=== PATIENT | female | born 1990 | race Caucasian/White ===

== ENCOUNTER 2023-02-07 13:31 | Inpatient (IN) | payer MEDICAID, SELFPAY ==
[2023-02-07 13:33] VITALS: BP 148/92; PULSE 111; RESP 16; TEMP 36.6; O2SAT 100; BMI 26.2
--- NOTE | 2023-02-07 15:59 | EDS_ITS ---
HPI History of Present Illness Chief Complaint: Substance Abuse Informant: patient Narrative Narrative: She isPatient presents requesting help with alcohol detox. She lives in the [place] area her counselor spoke with someone for follow-up but they would not have a bed available until Friday. They recommended she come in for inpatient detox. Patient states has been drinking for the last 7 years. She will drink half gallon of whiskey every 2 or 3 days. She is try to stop on her own before but does develop withdrawal symptoms including headache, shakiness, body aches. Her last drink was last evening. She states she started to feel anxious currently. She has never had an alcohol withdrawal seizure. [facility] Medical History Hypertension Ulcer Home Medications lisinopril 20 mg tablet 20 mg PO DAILY 02/07/23 [History Last Taken Unknown] pantoprazole 40 mg tablet,delayed release 40 mg PO DAILY 02/07/23 [History Last Taken Unknown] Allergy/AdvReac Type Severity Reaction Status Date / Time amoxicillin AdvReac Upset Verified 02/07/23 13:34 Stomach Social History Smoking Status: Current every day smoker tobacco type: cigarettes ROS ROS ED Constitutional Constitutional ED: Denies chills or fever(s) Eyes Eyes: Denies change in vision or discharge from eye(s) ENT ENT ED: Denies discharge from eye(s), rhinorrhea or sore throat Cardiovascular Cardiovascular: Denies chest pain or palpitations Respiratory/Chest Respiratory/Chest: Denies cough or dyspnea Gastrointestinal Gastrointestinal: Denies abdominal pain, nausea or vomiting Genitourinary Genitourinary ED: Denies dysuria Musculoskeletal Musculoskeletal: Denies back pain or extremity pain Integumentary Denies Abrasions or rash Neurologic Neurologic: Denies headache(s) or weakness Psychiatric Psychiatric: Reports anxiety; Denies depression Allergic/Immunologic Allergic/Immunologic ED: Denies lip swelling or urticaria EXAM Physical Exam Const Vital Signs: 02/07/23 13:33 Temperature 98 F Temperature Source Temporal Pulse Rate 111 H Respiratory Rate 16 Blood Pressure 148/92 H Blood Pressure Mean 110 Pulse Ox 100 Oxygen Delivery Method Room Air Positive well nourished and well developed General Appearance ED: well developed HEENT Reports normocephalic and head/scalp atraumatic Eyes PERRL and EOMs intact bilaterally Neck supple Chest Wall inspection of chest normal and palpation of chest normal Resp normal respiratory effort and clear to auscultation bilaterally Cardio regular rhythm Rate: tachycardic GI normal to inspection, nondistended, normoactive bowel sounds Palpation: soft Back/Spine no CVA tenderness Extremity normal to inspection Neuro oriented x3 and no sensory deficits noted Sensorium / Orientation: alert Motor Exam: strength 5/5 throughout Psych Mood & Affect: anxious and tearful Skin no rashes or lesions noted MDM MDM MDM Narrative Medical decision making narrative: Lab work for ED addiction medicine is obtained. Rules of the floor are reviewed with her. She agrees. She is given a small dose of Ativan IV to help with anxiety. Lab Data Attestation: I reviewed the patient's lab results. Labs: Laboratory Results - last 24 hr 02/07/23 02/07/23 02/07/23 16:09 16:29 16:29 WBC 13.4 H RBC 5.04 Hgb 15.6 H Hct 47.1 H MCV 93.5 MCH 31.0 MCHC 33.1 RDW Std Deviation 44.5 H RDW Coeff of Eduardo 13.0 Plt Count 237 MPV 10.2 Immature Gran % (Auto) 0.400 Neut % (Auto) 72.6 H Lymph % (Auto) 20.5 [place] % (Auto) 5.8 Eos % (Auto) 0.4 Baso % (Auto) 0.3 Absolute Neuts (auto) 9.7 H Absolute Lymphs (auto) 2.74 Nucleated RBC % 0 Sodium 139 Potassium 3.9 Chloride 106 Carbon Dioxide 24.0 Anion Gap 9 BUN 12 Creatinine 0.75 Estim Creat Clear Calc 92.99 Est GFR (MDRD) Af Amer 115 Est GFR (MDRD) Non-Af 95 BUN/Creatinine Ratio 16.0 Glucose 90 Calcium 9.3 Total Bilirubin 0.70 AST 28 ALT 56 Alkaline Phosphatase 57 Total Protein 8.4 H Albumin 4.4 Globulin 4.0 Albumin/Globulin Ratio 1.1 Serum , Qual Ur Drug Screen Comment 02/07/23 16:29 WBC RBC Hgb Hct MCV MCH MCHC RDW Std Deviation RDW Coeff of Eduardo Plt Count MPV Immature Gran % (Auto) Neut % (Auto) Lymph % (Auto) [place] % (Auto) Eos % (Auto) Baso % (Auto) Absolute Neuts (auto) Absolute Lymphs (auto) Nucleated RBC % Sodium Potassium Chloride Carbon Dioxide Anion Gap BUN Creatinine Estim Creat Clear Calc Est GFR (MDRD) Af Amer Est GFR (MDRD) Non-Af BUN/Creatinine Ratio Glucose Calcium Total Bilirubin AST ALT Alkaline Phosphatase Total Protein Albumin Globulin Albumin/Globulin Ratio Serum , Qual NEGATIVE Ur Drug Screen Comment Treatment and Re-Evaluation Narrative: White blood cell count is elevated at 13.4. Normal differential. Chemistry st udies unremarkable. LFTs are normal. test is negative. Tox and EtOH level are currently pending. Patient does admit to recent cocaine use, but states she does not use it regularly and does not feel that she will have any withdrawal symptoms. She will be given Tylenol for headache. I will speak with hospitalist for admission. Discharge Plan Dx/Rx/DC Orders Clinical Impression: Desire for detoxification, Alcohol abuse Disposition Disposition: Acute Care Hospital [facility]
[2023-02-07] MEDS: LORazepam 2 MG/ML Syringe 0.5 MG IV (16:26)
[2023-02-07 16:42] LABS: Absolute Lymphocyte Count 2.74 X10^3/uL (0.83-4.51); Absolute Neutrophil Count 9.7 X10^3/uL (2.0-7.7); Basophil# 0.04 X10^3/uL; Basophil% 0.3 % (0-1); Eosinophil# 0.05 X10^3/uL; Eosinophils% 0.4 % (0-5); Hematocrit 47.1 % (37-47); Hemoglobin 15.6 g/dL (12.0-15.0); Lymphocyte # 2.74 X10^3/ul (0.83-4.51); Lymphocyte % 20.5 % (19-41); Mean Corp Hgb Conc 33.1 g/dL (32-36); Mean Corpuscular Volume 93.5 fL (81-99); Mean Platelet Vol. 10.2 fl (6.2-12.0); Monocyte# 0.78 X10^3/uL; Monocyte% 5.8 % (0-10); NRBC Flagged by Analyzer 0 % (0-5); Neutrophil # 9.73 X10^3/uL (2.7-7.7); Neutrophil % 72.6 % (47-70); Platelet Count 237 K/mm3 (150-450); RBC Distribution Width SD 44.5 fl (35.1-43.9); Red Blood Count 5.04 M/mm3 (4.2-5.4); White Blood Count 13.4 K/mm3 (4.4-11.0)
[2023-02-07 16:58] LABS: ALB/GLOB Ratio 1.1 RATIO (0.9-2.4); AST(SGOT) 28 U/L (15-37); Alanine Aminotransfer ALT/SGPT 56 U/L (13-56); Albumin, Serum 4.4 g/dL (3.2-5.0); Alkaline Phosphatase 57 U/L (45-117); Anion Gap 9 (5-15); BUN 12 mg/dL (7-18); Calcium,Total 9.3 mg/dL (8.5-10.1); Chloride 106 mmol/L (98-107); Creatinine, Serum 0.75 mg/dL (0.55-1.02); EST Glomerular Filtration Rate 95 mL/min (>60); Est Glom Filt Rate - Afr Amer 115 mL/min (>60); Estimated Creatinine Clearance 92.99 ml/min; Glucose 90 mg/dL (74-106); Internal QC Validated? YES +Cl - CLEAR BKGD; Potassium 3.9 mmol/L (3.5-5.1); Pregnancy, Serum, hCG Quali. NEGATIVE Negative; Protein, Total 8.4 g/dL (6.4-8.2); Sodium Level 139 mmol/L (136-145)
[2023-02-07] MEDS: Acetaminophen 500 MG Tablet 1000 MG PO (18:04)
[2023-02-07 18:19] LABS: Alcohol, Blood (Medical)-Serum < 3.0 mg/dL
--- NOTE | 2023-02-07 18:34 | PCM.HP.STD ---
HPI - General General Date of Admission: 02/07/23 Date of Service: 02/07/23 Chief Complaint: Alcohol detox HPI Narrative GEOVANI CLUOD, is a 32 F with a history of hypertension GERD and alcohol abuse who presented to [facility] 02/07/2023 for alcohol detox. She sees a counselor in another [facility] and they discussed inpatient rehab but no beds until Friday and the patient would like to acute detox prior to inpatient. She reports for 7 years she has drank roughly half a gallon of whiskey every 2 to 3 days and has not gone for more than a day or 2 without drinking during that time period. She had her last drink last night and is feeling anxious and shaky as well as tired. Has a headache and is somewhat nauseated. Denies routine use of other substances though did use cocaine recently denies regular use. [facility] Medical History Hypertension Ulcer Home Medications lisinopril 20 mg tablet 20 mg PO DAILY 02/07/23 [History Last Taken Unknown] pantoprazole 40 mg tablet,delayed release 40 mg PO DAILY 02/07/23 [History Last Taken Unknown] Allergy/AdvReac Type Severity Reaction Status Date / Time amoxicillin AdvReac Upset Verified 02/07/23 13:34 Stomach Social History Smoking Status: Current every day smoker tobacco type: cigarettes ROS ROS Narrative General: Denies fever/chills, feels tired HENT: Has a headache EYES: Denies changes in vision Resp: Denies cough, denies shortness of breath Cardiac: Denies chest pain GI: Feels nauseated but no abdominal pain g : Denies changes in urination Extremity: Denies swelling MSK: Denies weakness Neuro: Denies any numbness/tingling, feels shaky Heme: Denies any bleeding or bruising Skin: Denies rashes Psychiatric: Feels anxious Vital Signs Vital Signs Vital Signs: 02/07/23 13:33 Temperature 98 F Temperature Source Temporal Pulse Rate 111 H Respiratory Rate 16 Blood Pressure 148/92 H Blood Pressure Mean 110 Pulse Ox 100 Oxygen Delivery Method Room Air Weight Weight: 69.4 kg Body Mass Index (BMI) 26.2 Physical Exam Narrative General: Alert, oriented, no apparent distress HEENT: Atraumatic, normocephalic Eyes: Anicteric, normal conjunctiva, extraocular movements grossly intact Neck: Supple Respiratory: Clear to auscultation bilaterally, normal respiratory effort Cardiovascular: Regular rate and rhythm GI: Soft, nontender, nondistended Extremities: No edema Musculoskeletal: Moving all extremities Neuro: No overt focal neurological deficits Skin: No rashes appreciated Psych: Cooperative Results Lab / Micro Data Result Diagrams: 02/07/23 16:29 02/07/23 16:29 Labs: Laboratory Results - last 24 hr 02/07/23 16:09: Ur Drug Screen Comment 02/07/23 16:29: WBC 13.4 H, RBC 5.04, Hgb 15.6 H, Hct 47.1 H, MCV 93.5, MCH 31.0, MCHC 33.1, RDW Std Deviation 44.5 H, RDW Coeff of Eduardo 13.0, Plt Count 237, MPV 10.2, Immature Gran % (Auto) 0.400, Neut % (Auto) 72.6 H, Lymph % (Auto) 20.5, [place] % (Auto) 5.8, Eos % (Auto) 0.4, Baso % (Auto) 0.3, Absolute Neuts (auto) 9.7 H, Absolute Lymphs (auto) 2.74, Nucleated RBC % 0 02/07/23 16:29: Sodium 139, Potassium 3.9, Chloride 106, Carbon Dioxide 24.0, Anion Gap 9, BUN 12, Creatinine 0.75, Estim Creat Clear Calc 92.99, Est GFR (MDRD) Af Amer 115, Est GFR (MDRD) Non-Af 95, BUN/Creatinine Ratio 16.0, Glucose 90, Calcium 9.3, Total Bilirubin 0.70, AST 28, ALT 56, Alkaline Phosphatase 57, Total Protein 8.4 H, Albumin 4.4, Globulin 4.0, Albumin/Globulin Ratio 1.1 02/07/23 16:29: Serum , Qual NEGATIVE 02/07/23 17:10: Ethyl Alcohol < 3.0 Assessment & Plan Assessment/Plan (1) Desire for detoxification: (2) Alcohol abuse: PLAN: Plan #Alcohol use disorder - We will begin CIWA every 4 for 24 hours, then every 6 for 24 hours, then every 12 until discharge -Will begin phenobarbitol taper -Gabapentin 300 mg every 8 as needed -Will start Bentyl and hydroxyzine as needed as well as loperamide as needed -Trazodone 100 mg p.o. nightly as needed sleep -Begin thiamine and folic acid supplementation -Zofran as needed for nausea -Case management consult to assist with discharge planning -EtOH and drug screen will be obtained #GERD -Continue Protonix #Hypertension -Continue lisinopril #DVT ppx: Low risk, ambulatory Sarah Merino MD Charges/Coding Visit Charges Inpatient E&M: 72674 Init Hosp L2
[2023-02-07 18:49] VITALS: BP 126/78; PULSE 79; RESP 18; TEMP 37.1; O2SAT 99
[2023-02-07 19:44] VITALS: BMI 30.7
[2023-02-07 19:57] VITALS: BP 121/83; PULSE 75; RESP 18; TEMP 36.6; O2SAT 100
[2023-02-07] MEDS: Acetaminophen 325 MG Tablet 650 MG PO (20:01)
[2023-02-07] MEDS: Phenobarbital 32.4 MG Tablet 64.8 MG PO ×2 (20:01→23:20)
[2023-02-07 20:41] LABS: Amphetamine Urine VISTA NEGATIVE (<1000 ng/mL); Barbiturate Urine VISTA NEGATIVE (< 200 ng/mL); Benzodiazepine Urine VISTA NEGATIVE (< 200 ng/mL); Cocaine Urine VISTA POSITIVE (< 300 ng/mL); Ecstacy Urine VISTA NEGATIVE (< 500 ng/mL); Methadone Urine VISTA NEGATIVE (< 300 ng/mL); PCP Urine VISTA NEGATIVE (< 25 ng/mL); THC Urine VISTA NEGATIVE (< 50 ng/mL); Vista UDS pH Range 5
[2023-02-07 23:18] VITALS: BP 118/73; PULSE 80; RESP 18; TEMP 36.6; O2SAT 100
[2023-02-08] MEDS: Phenobarbital 32.4 MG Tablet 64.8 MG PO ×6 (03:15→22:48)
[2023-02-08 03:25] VITALS: BP 111/75; PULSE 76; RESP 17; TEMP 536.6; TEMP 998; O2SAT 97
[2023-02-08] MEDS: Acetaminophen 325 MG Tablet 650 MG PO ×2 (06:32→22:48)
[2023-02-08 06:38] VITALS: BP 118/84; PULSE 68; RESP 18; TEMP 36.6; O2SAT 97
--- NOTE | 2023-02-08 06:51 | PCM.PN.HOSP ---
Reason for Visit Reason for Visit: Acute alcohol withdrawal/detox Subjective Subjective Ms. Gottlieb is a 32-year-old white female who presented to the emergency department [facility] on 02/07/2023 for alcohol detox. She sees a counselor in another city and they discussed inpatient detox but there were no beds available till Friday so she came here for detox.. She evidently has been drinking approximately 1/2 gallon of whiskey every 2 to 3 days and has not gone more than a day or 2 without drinking. Her last drink was the night before presentation and she was feeling anxious and shaky she was also complaining of fatigue, headache, and nausea. She denies any other routine substance abuse however does admit to recent cocaine use, which is consistent with her tox screen results. Patient intends on outpatient follow-up after discharge. Is reporting some tremor at this time, body aches, and anxiety but otherwise is feeling okay. No current needs identified. Objective Data Objective Data Vital Signs: Vital Signs Temp Pulse Resp BP Pulse Ox O2 Del Method 98 F 68 18 118/84 H 97 Room Air 02/08/23 06:38 02/08/23 06:38 02/08/23 06:38 02/08/23 06:38 02/08/23 06:38 02/08/23 06:38 Oxygen Delivery Method Room Air Weight: 81.3 kg Body Mass Index (BMI) 30.7 Intake & Output: Intake and Output for Last 24 Hours 02/06/23 02/07/23 02/08/23 23:59 23:59 23:59 Intake Total 200 / 200 120 / 120 Balance 200 / 200 120 / 120 Lab / Micro Data Result Diagrams: 02/07/23 16:29 02/07/23 16:29 Labs: Laboratory Results - last 24 hr 02/07/23 16:09: Urine Opiates Screen NEGATIVE, Urine Methadone Screen NEGATIVE, Ur Barbiturates Screen NEGATIVE, Ur Phencyclidine Scrn NEGATIVE, Ur Amphetamines Screen NEGATIVE, MDMA (Ecstasy) Screen NEGATIVE, U Benzodiazepines Scrn NEGATIVE, Urine Cocaine Screen POSITIVE H, U Cannabinoids Screen NEGATIVE, Ur Drug Screen Comment 02/07/23 16:29: WBC 13.4 H, RBC 5.04, Hgb 15.6 H, Hct 47.1 H, MCV 93.5, MCH 31.0, MCHC 33.1, RDW Std Deviation 44.5 H, RDW Coeff of Eduardo 13.0, Plt Count 237, MPV 10.2, Immature Gran % (Auto) 0.400, Neut % (Auto) 72.6 H, Lymph % (Auto) 20.5, [place] % (Auto) 5.8, Eos % (Auto) 0.4, Baso % (Auto) 0.3, Absolute Neuts (auto) 9.7 H, Absolute Lymphs (auto) 2.74, Nucleated RBC % 0 02/07/23 16:29: Sodium 139, Potassium 3.9, Chloride 106, Carbon Dioxide 24.0, Anion Gap 9, BUN 12, Creatinine 0.75, Estim Creat Clear Calc 92.99, Est GFR (MDRD) Af Amer 115, Est GFR (MDRD) Non-Af 95, BUN/Creatinine Ratio 16.0, Glucose 90, Calcium 9.3, Total Bilirubin 0.70, AST 28, ALT 56, Alkaline Phosphatase 57, Total Protein 8.4 H, Albumin 4.4, Globulin 4.0, Albumin/Globulin Ratio 1.1 02/07/23 16:29: Serum , Qual NEGATIVE 02/07/23 17:10: Ethyl Alcohol < 3.0 Physical Exam Const alert, oriented x3, no apparent distress and well nourished Constitutional Narrative: Obese, lower middle-aged, white female sitting up in bed watching television, appears comfortable nontoxic HEENT head/scalp atraumatic, moist oral mucous membranes and oropharynx normal Head and Scalp: normocephalic Resp normal respiratory effort, no retractions, no use of accessory muscles and clear to auscultation bilaterally Auscultation: Negative for crackles, rhonchi or wheezes Cardio regular rate, regular rhythm, S1 normal heart sound, S2 normal heart sound, no murmurs, no rub, no gallops and no clicks GI normal to inspection, nondistended, normoactive bowel sounds, soft to palpation and non-tender; Negative for hepatosplenomegaly Extremity no clubbing, cyanosis or edema Extremity Narrative: 2+ pedal pulses Neuro oriented x3, moves all extremities and no focal motor deficits Speech: speech normal Psych affect normal Mood & Affect: anxious Assessment & Plan Assessment/Plan (1) Alcohol abuse: (2) Alcohol withdrawal: (3) Leukocytosis: (4) Erythrocytosis: PLAN: Plan Acute alcohol withdrawal/desire for detoxification -Patient drinking approximately 1/2 gallon of whiskey every 2 to 3 days -Phenobarbital taper -Thiamine and folate--> increase thiamine to 200 mg daily for 3 days -Supportive medication for symptomatic relief - test was negative -180 consultation for assistance with setting up discharge arrangements when patient is medically stable -Patient intends on outpatient rehab Leukocytosis -Suspect reactive versus hemoconcentration as hemoglobin is up as well -We will repeat CBC in the a.m. to reevaluate Erythrocytosis -Hemoglobin 15.6 -No previous lab for comparison -May be hemoconcentrated -Repeat CBC in a.m. GERD -Continue PPI Hypertension -Continue lisinopril daily -I do expect that her blood pressures may be a little bit elevated with her acute alcohol withdrawal Tobacco abuse -Nicotine patch -Recommend cessation DVT prophylactics -low risk -Encourage frequent and early mobility CODE STATUS -Full code Charges/Coding Visit Charges Inpatient E&M: 57831 Subs Hosp L2
[2023-02-08] MEDS: Thiamine Hydrochloride 100 MG Tablet 200 MG PO (09:00)
[2023-02-08] MEDS: Folic Acid 1 MG Tablet PO (09:00)
--- NOTE | 2023-02-08 09:05 | CASEMGMT ---
Social Work SW notified pt navigator Abi at [facility] that pt is here for detox. She will be in later this morning. PEACE Smith
[2023-02-08 10:00] VITALS: BP 124/75; PULSE 78; RESP 16; TEMP 36.3; O2SAT 97
[2023-02-08] MEDS: Pantoprazole Sodium 40 MG Tablet PO (10:40)
[2023-02-08] MEDS: 0.9% Saline Lock 10 ML Syringe IV (10:41)
[2023-02-08] MEDS: Lisinopril 20 MG Tablet PO (10:41)
[2023-02-08] MEDS: hydrOXYzine PAM 25 MG Capsule 50 MG PO (10:48)
[2023-02-08 14:00] VITALS: BP 99/63; PULSE 65; RESP 18; TEMP 36.9; O2SAT 98
--- NOTE | 2023-02-08 16:01 | ADDICTION ---
This commercial insurance underwriter met with PT to conduct ASAM, MSE, AUDIT assessments and to plan for d/c. PT A+Ox4 and participated actively. All assessments completed and placed in PT's chart. PT plans to f/u with [facility] for follow-up treatment services. Pt declined inpatient treatment. PT did not indicate a need for transportation post d/c from [facility].
[2023-02-08 18:00] VITALS: BP 105/72; PULSE 72; RESP 16; TEMP 36.7; O2SAT 97
[2023-02-08 22:42] VITALS: BP 104/64; PULSE 71; RESP 16; TEMP 36.7; O2SAT 97
[2023-02-09] VITALS (7 sets, daily range): BP systolic 90–119; BP diastolic 54–71; PULSE 63–87; RESP 14–18; TEMP 36.7–37; O2SAT 95–98
[2023-02-09] MEDS: Phenobarbital 32.4 MG Tablet 64.8 MG PO ×6 (03:43→22:59)
[2023-02-09 06:14] LABS: Absolute Lymphocyte Count 2.16 X10^3/uL (0.83-4.51); Absolute Neutrophil Count 3.1 X10^3/uL (2.0-7.7); Basophil# 0.03 X10^3/uL; Basophil% 0.5 % (0-1); Eosinophil# 0.12 X10^3/uL; Hemoglobin 13.8 g/dL (12.0-15.0); Lymphocyte # 2.16 X10^3/ul (0.83-4.51); Lymphocyte % 36.2 % (19-41); Mean Corp Hgb Conc 32.1 g/dL (32-36); Mean Corpuscular Hgb 30.7 pg (27.0-32.0); Mean Corpuscular Volume 95.8 fL (81-99); Mean Platelet Vol. 10.3 fl (6.2-12.0); Monocyte# 0.53 X10^3/uL; Monocyte% 8.9 % (0-10); NRBC Flagged by Analyzer 0 % (0-5); Neutrophil % 52.1 % (47-70); Platelet Count 181 K/mm3 (150-450); RBC Distribution Width CV 12.6 % (11.6-14.6); RBC Distribution Width SD 45.1 fl (35.1-43.9); Red Blood Count 4.49 M/mm3 (4.2-5.4)
[2023-02-09 07:12] LABS: Magnesium 2.1 mg/dL (1.6-2.6)
[2023-02-09] MEDS: Thiamine Hydrochloride 100 MG Tablet 200 MG PO (09:00)
[2023-02-09] MEDS: Folic Acid 1 MG Tablet PO (09:00)
[2023-02-09] MEDS: Lisinopril 20 MG Tablet PO (09:24)
[2023-02-09] MEDS: Pantoprazole Sodium 40 MG Tablet PO (09:24)
[2023-02-09] MEDS: Ibuprofen 600 MG Tablet PO ×2 (09:24→15:28)
[2023-02-09] MEDS: hydrOXYzine PAM 25 MG Capsule 50 MG PO ×2 (09:24→15:29)
[2023-02-09] MEDS: 0.9% Saline Lock 10 ML Syringe IV (09:26)
--- NOTE | 2023-02-09 09:45 | PCM.PN.HOSP ---
Reason for Visit Reason for Visit: Acute alcohol withdrawal requesting detox Subjective Subjective No significant issues overnight. Patient states she still feels like she has some body aches but no tremulousness, internal anxiety, nausea, vomiting, or diarrhea. Objective Data Objective Data Vital Signs: Vital Signs Temp Pulse Resp BP Pulse Ox O2 Del Method 98.1 F 63 16 96/58 L 98 Room Air 02/09/23 06:45 02/09/23 06:45 02/09/23 06:45 02/09/23 06:45 02/09/23 06:45 02/09/23 06:45 Oxygen Delivery Method Room Air Weight: 81.3 kg Body Mass Index (BMI) 30.7 Intake & Output: Intake and Output for Last 24 Hours 02/07/23 02/08/23 02/09/23 23:59 23:59 23:59 Intake Total 200 / 200 1560 / 1560 Balance 200 / 200 1560 / 1560 Lab / Micro Data Result Diagrams: 02/09/23 05:22 02/07/23 16:29 Labs: Laboratory Results - last 24 hr 02/09/23 05:22: WBC 6.0, RBC 4.49, Hgb 13.8, Hct 43.0, MCV 95.8, MCH 30.7, MCHC 32.1, RDW Std Deviation 45.1 H, RDW Coeff of Eduardo 12.6, Plt Count 181, MPV 10.3, Immature Gran % (Auto) 0.300, Neut % (Auto) 52.1, Lymph % (Auto) 36.2, [place] % (Auto) 8.9, Eos % (Auto) 2.0, Baso % (Auto) 0.5, Absolute Neuts (auto) 3.1, Absolute Lymphs (auto) 2.16, Nucleated RBC % 0 02/09/23 05:22: Phosphorus 3.0, Magnesium 2.1 Physical Exam Const alert, oriented x3, no apparent distress and well nourished Constitutional Narrative: Obese, lower middle-aged, white female sitting up in bed watching television, appears comfortable, nontoxic HEENT head/scalp atraumatic Head and Scalp: normocephalic Extremity Extremity Narrative: 2+ pedal pulses Neuro oriented x3 and moves all extremities Speech: speech normal Psych affect normal Psych Narrative: Eye contact is good and mood is stable Assessment & Plan Assessment/Plan (1) Alcohol abuse: (2) Alcohol withdrawal: (3) Leukocytosis: (4) Erythrocytosis: PLAN: Plan Acute alcohol withdrawal/desire for detoxification -Patient drinking approximately 1/2 gallon of whiskey every 2 to 3 days -Phenobarbital taper -Thiamine and folate--> increase thiamine to 200 mg daily for 3 days -Supportive medication for symptomatic relief - test was negative -180 evaluated the patient yesterday-->plans to f/u with [facility] for follow-up treatment services. Pt declined inpatient treatment. PT did not indicate a need for transportation post d/c from [facility]. Leukocytosis -Resolved Erythrocytosis -Resolved GERD -Continue PPI Hypertension -Blood pressure remained stable and actually on the low side we will hold lisinopril for now and monitor Tobacco abuse -Nicotine patch -Recommend cessation DVT prophylactics -low risk -Encourage frequent and early mobility CODE STATUS -Full code Charges/Coding Visit Charges Inpatient E&M: 50277 Subs Hosp L1
[2023-02-10 03:50] VITALS: BP 108/57; PULSE 65; RESP 16; TEMP 36.8; O2SAT 99
[2023-02-10] MEDS: Phenobarbital 32.4 MG Tablet 64.8 MG PO ×2 (03:54→09:39)
[2023-02-10] MEDS: Pantoprazole Sodium 40 MG Tablet PO (08:25)
[2023-02-10] MEDS: Thiamine Hydrochloride 100 MG Tablet 200 MG PO (08:25)
[2023-02-10] MEDS: Folic Acid 1 MG Tablet PO (08:25)
[2023-02-10 10:00] VITALS: BP 112/72; PULSE 78; RESP 16; TEMP 36.7; O2SAT 96
--- NOTE | 2023-02-10 11:01 | PCM.DC.SUM ---
Providers Date of Admission: 02/07/23 Date of Discharge: 02/10/23 Primary Care Physician: No Primary Care Phys Reason For Visit: ALCOHOL DETOX Diagnosis Discharge Diagnosis (1) Alcohol abuse: Status: Acute Code(s): F10.10 - Alcohol abuse, uncomplicated (2) Alcohol withdrawal: Status: Acute Code(s): F10.939 - Alcohol use, unspecified with withdrawal, unspecified (3) Leukocytosis: Status: Resolved Code(s): D72.829 - Elevated white blood cell count, unspecified (4) Erythrocytosis: Status: Resolved Code(s): D75.1 - Secondary polycythemia Medications at Discharge Home Medications lisinopril 20 mg tablet 20 mg PO DAILY 02/07/23 pantoprazole 40 mg tablet,delayed release 40 mg PO DAILY 02/07/23 Hospital Course Operations None Procedures None Summary of Care Provided Minutes Spent on Discharge: 22 Hospital Course: Ms. Gottlieb is a 32-year-old white female who presented to the emergency department [facility] on 02/07/2023 for alcohol detox.? She sees a counselor in another [facility] and they discussed inpatient detox there but there were no beds available till Friday so she came here for detox. She had been drinking approximately 1/2 gallon of whiskey every 2 to 3 days and had not gone more than a day or 2 without drinking.? Her last drink was the night before presentation and she was feeling anxious and shaky at the time of presentation. She was also complaining of fatigue, headache, and nausea.? She denied any other routine substance abuse however does admit to recent cocaine use, which is consistent with her tox screen results. She was admitted to the medical floor and placed on a phenobarbital taper as well as thiamine 200 mg daily x3 days and folic acid. Supplemental medications were utilized for symptom relief. She had an overall uneventful detox and was doing quite well and very asymptomatic with regards to detox symptoms by the a.m. of 02/10/2023. She met with addiction medicine during her hospital course and she had plans to follow up with [facility] for follow-up treatment services. The patient did decline inpatient treatment services after discharge. She was able to be discharged home in stable condition on 02/10/2023 in stable condition. I did discuss with her the importance of following up as an outpatient and she stated that she had already been involved with them previously. She voiced understanding and stated she would do so. Discharge diagnoses: -Acute alcohol withdrawal Leukocytosis-resolved Of erythrocytosis-resolved GERD Hypertension Tobacco abuse Physical Exam Const alert, oriented x3, no apparent distress, healthy appearing and well nourished Constitutional Narrative: Obese, young middle-aged white female, lying in bed watching television, appears comfortable nontoxic General Appearance: cooperative, comfortable, well kempt and well developed Orientation / Consciousness: awake, oriented to person, oriented to place and oriented to time Exam Limitations: no limitations Nutritional Appearance: obese HEENT normocephalic, head/scalp atraumatic, hearing grossly normal bilaterally and moist oral mucous membranes Resp normal respiratory effort, no retractions, no use of accessory muscles and clear to auscultation bilaterally Auscultation: Negative for rales, rhonchi or wheezes Cardio regular rate, regular rhythm, S1 normal heart sound, S2 normal heart sound, no murmurs, no rub, no gallops and no clicks GI normal to inspection, nondistended, normoactive bowel sounds, soft to palpation and non-tender Extremity no clubbing, cyanosis or edema Neuro oriented x3, CN's II-XII intact bilaterally, moves all extremities and no focal motor deficits Speech: speech normal Psych Psych Narrative: Affect is slightly flat, eye contact is good however and mood does not seem to be depressed at this time Weight / BMI Weight Weight: 81.3 kg Body Mass Index (BMI) 30.7 ABG / Lab / Microbiology Data Result Diagrams: 02/09/23 05:22 02/07/23 16:29 D/C Instructions Discharge Diet: No restrictions Discharge Activity: Return to Normal Activity Meaningful Use Info Meaningful Use Diagnoses (Choose all that apply): None applicable Discharge Plan Admission Admit Date/Time: 02/07/23 18:34 Primary Reason for Your Visit: EtOH Detox Attending Provider: Iris Holbrook Primary Care Provider: Care Physician,No Primary Consulting Providers: Sarah Merino Instructions Additional Instructions / Restrictions: 1. f/u with [facility] for follow-up treatment services Discharge Orders/Prescriptions Prescriptions: Continued lisinopril 20 mg tablet 20 mg PO DAILY pantoprazole 40 mg tablet,delayed release (DR/EC) 40 mg PO DAILY Referrals / Follow Up: Care Physician,No Primary [Primary Care Provider] - NOT,DEFINED [Non-Staff] - Disposition Disposition (needs filled in before D/C Order can be placed): Home, Self Care Charges/Coding Visit Charges Inpatient E&M: 88417 Disch Hosp
--- NOTE | 2023-02-10 11:30 | PHA.DC.MR ---
Pharmacy Service has performed discharge medication reconciliation for this patient. The patient's discharge medication list was reviewed for discrepancies and discrepancies were resolved. Home Medications lisinopril 20 mg tablet 20 mg PO DAILY 02/07/23 pantoprazole 40 mg tablet,delayed release 40 mg PO DAILY 02/07/23
== END 2023-02-10 12:41 | disposition home or self-care (01) | DRG 772 ==
LOC: ED 17:49 → MS3 18:22
PROVIDERS: Admitting Provider Internal Medicine; Emergency Provider Emergency Medicine; Visit Provider Internal Medicine
DX: F10.130 Alcohol abuse with withdrawal, uncomplicated (principal); D75.1 Secondary polycythemia; F14.90 Cocaine use, unspecified, uncomplicated; K21.9 Gastro-esophageal reflux disease without esophagitis; I10 Essential (primary) hypertension; F41.9 Anxiety disorder, unspecified; F17.210 Nicotine dependence, cigarettes, uncomplicated; Z79.899 Other long term (current) drug therapy
CPT/HCPCS: 36415; 80053; 80307; 82077; 83735; 84100; 84703; 85025; 99284; 99406; A4216